=== PATIENT | female | born 1990 | race Hispanic/Latino ===

== ENCOUNTER 2022-01-12 16:33 | Emergency (ER) | payer OTHER, SELFPAY ==
[2022-01-12 16:37] VITALS: BP 123/81; PULSE 83; RESP 17; TEMP 36.6; O2SAT 100; BMI 30.1
[2022-01-12] MEDS: Penicillin Vk 250 MG Tablet 500 MG PO (18:06)
--- NOTE | 2022-01-12 18:07 | EX.ED.DYSGE1 ---
HPI History of Present Illness Chief Complaint: Edema Narrative Narrative: [place]anian-speaking formal translation staff present. Increasing left facial swelling over the past day. Reported dental filling came tooth a month ago. Hot and cold sensitivities. No fevers. No trouble swallowing. Has a dentist appointment on Saturday. No allergies. No past medical history. No medications taken. [facility] Home Medications penicillin V potassium 500 mg tablet 500 mg PO 4X/DAY #40 tabs 01/12/22 [Rx Last Taken Unknown] Allergy/AdvReac Type Severity Reaction Status Date / Time No Known Allergies Allergy Verified 01/12/22 16:35 Surgical History History of 2 sections Social History Smoking Status: Never smoker ROS ROS ED Constitutional Constitutional ED: Denies chills, fever(s) or sweats Eyes Eyes: Denies change in vision ENT ENT ED: Reports other Details: Dental pain with left-sided facial swelling ; Denies dysphagia or sore throat Cardiovascular Cardiovascular: Denies chest pain, leg edema, palpitations or racing heartbeat Respiratory/Chest Respiratory/Chest: Denies cough, dyspnea or dyspnea on exertion Gastrointestinal Gastrointestinal: Denies abdominal pain, diarrhea, nausea or vomiting Genitourinary Genitourinary ED: Denies dysuria, hematuria or urinary frequency Musculoskeletal Musculoskeletal: Denies back pain, extremity pain or neck pain Integumentary Denies rash or wounds Neurologic Neurologic: Denies headache(s), paresthesias or weakness EXAM Physical Exam Const Vital Signs: 01/12/22 16:37 01/12/22 17:33 Temperature 97.9 F Temperature Source Temporal Pulse Rate 83 Respiratory Rate 17 Respiratory Effort Normal Non-Labored Respiratory Pattern Normal Blood Pressure 123/81 H Blood Pressure Mean 95 Pulse Ox 100 Oxygen Delivery Method Room Air Positive well nourished and well developed General Appearance ED: well developed and NAD HEENT Reports moist mucous membranes HEENT Narrative: Focal dental carry tooth #14, with tenderness to percussion. There is no focal gum swelling. There is mild facial swelling maxillary. Airway patent. No sublingual edema. normocephalic and atraumatic Eyes PERRL, EOMs intact bilaterally and conjunctivae normal General Eye ED: Yes normal appearance of both eyes Neck no lymphadenopathy and supple General: Negative for tenderness Chest Wall Chest: Negative for tenderness Resp normal respiratory effort and normal air movement Effort and Inspection: symmetric chest movement; Negative for respiratory distress Cardio regular rate, regular rhythm and no murmurs Peripheral Pulses: pulses 2+ throughout GI normal to inspection, nondistended, normoactive bowel sounds and non-tender Palpation: Negative for guarding or rebound tenderness present Back/Spine no CVA tenderness and no thoracic nor lumbar tenderness Extremity normal to inspection General Extremety ED: Negative for edema or tenderness General Extremity: Negative for edema Neuro oriented x3 and no sensory deficits noted Sensorium / Orientation: awake and alert Skin no rashes or lesions noted and no wounds MDM MDM MDM Narrative Medical decision making narrative: Patient vital stable nontoxic. Focal dental carry tooth #14 with likely infection. There is no abscess for drainage. Dental Caveat was placed into tooth #14. Patient started on penicillin. She will use ibuprofen every 6 hours total 600 mg. She will keep her dental appointment on Saturday. Discharge Plan Triage Chief Complaint: Edema ED Provider: Gregory Altamirano Dx/Rx/DC Orders Clinical Impression: Dental caries, Facial swelling Instructions: ED Dental Cavity Prescriptions: New penicillin V potassium 500 mg tablet 500 mg PO 4X/DAY Qty: 40 0RF Primary Care Provider: Care Physician,No Primary Referrals: Care Physician,No Primary [Primary Care Provider] - Activity Restrictions/Additional Instructions: Keep dentist appointment on Saturday. Take antibiotic as prescribed. Ibuprofen 600 mg every 6 hours as needed. Disposition Disposition: Home, Self Care
== END 2022-01-12 18:20 | disposition home or self-care (01) ==
PROVIDERS: Emergency Provider Emergency Medicine; Visit Provider Emergency Medicine
DX: K02.9 Dental caries, unspecified (principal); R22.0 Localized swelling, mass and lump, head
CPT/HCPCS: 99283

== ENCOUNTER 2023-09-04 15:13 | Emergency (ER) | payer OTHER, SELFPAY ==
[2023-09-04 15:15] VITALS: BP 115/67; PULSE 94; RESP 16; TEMP 36.4; O2SAT 100
[2023-09-04 16:39] VITALS: BMI 33.3
[2023-09-04 16:40] VITALS: BP 102/60; PULSE 77; RESP 16; O2SAT 100
--- NOTE | 2023-09-04 17:51 | EDS_ITS ---
HPI HPI - Female History of Present Illness Chief Complaint: Vag Bld, Preg Informant: patient Limited: language barrier (Commercial Agent service was used) Pain Pain: Positive for Pelvic Pain Onset: Today Context: Sudden Onset Timing: Continuous Quality: Positive for Cramping Bleeding Issue: Positive for Vaginal bleeding Onset: Today Context: Sudden Onset Timing: Continuous Current Severity: Mild Associated Symptoms Associated Symptoms: Positive for Dysuria and Hematuria Test: Positive Narrative Narrative: Patient presents with vaginal bleeding and pelvic pain that began today. Patient states it began rather suddenly. Patient states her bleeding is less than her normal menstrual periods. Patient admits to some cramping. Patient states it is mainly over the lower abdomen. Patient states it has been constant. Patient admits to some dysuria and hematuria. Patient states that her last menstrual period was 07/17/2023. Patient states she had a positive test at home. Patient denies any fevers but admits to some subjective chills. Patient states she does have some pain going into her back as well. PFSH PFSH Medical History no medical history no medical history Home Medications ?Medication ?Instructions ?Recorded ?Last Taken ?Type penicillin V potassium 500 mg 500 mg PO 4X/DAY #40 tabs 01/12/22 Unknown Rx tablet Allergy/AdvReac Type Severity Reaction Status Date / Time No Known Allergies Allergy Verified 09/04/23 15:23 Surgical History History of 2 sections Social History household members: family Smoking Status: Never smoker ROS ROS ED Constitutional Constitutional ED: Reports chills and subjective; Denies fever(s) Eyes Eyes: Denies blurry vision or change in vision ENT ENT ED: Reports rhinorrhea; Denies sore throat Cardiovascular Cardiovascular: Denies chest pain or palpitations Respiratory/Chest Respiratory/Chest: Denies cough or dyspnea Gastrointestinal Gastrointestinal: Reports abdominal pain; Denies nausea or vomiting Genitourinary Genitourinary ED: Denies dysuria or hematuria Musculoskeletal Musculoskeletal: Reports back pain; Denies neck pain Integumentary Denies abscess or rash Neurologic Neurologic: Denies headache(s) or weakness Allergic/Immunologic Allergic/Immunologic ED: Denies mouth swelling or urticaria EXAM Physical Exam Const Vital Signs: 09/04/23 15:15 09/04/23 16:40 09/04/23 19:13 Temperature 97.6 F L Temperature Source Temporal Pulse Rate 94 77 70 Respiratory Rate 16 16 18 Blood Pressure 115/67 102/60 116/72 Blood Pressure Mean 83 74 86 Pulse Ox 100 100 98 Oxygen Delivery Method Room Air Room Air Room Air Positive well nourished and well developed General Appearance ED: well developed and NAD HEENT Reports moist mucous membranes Neck supple and no JVD Resp normal respiratory effort and clear to auscultation bilaterally Cardio regular rate and regular rhythm GI soft to palpation and non-distended Palpation: tender LLQ and suprapubic; Negative for guarding Extremity normal to inspection and full ROM Neuro oriented x3, CN's II-XII intact bilaterally and no sensory deficits noted Sensorium / Orientation: alert Motor Exam: strength 5/5 throughout Psych mental status grossly normal MDM MDM MDM Narrative Medical decision making narrative: Differential diagnosis includes ectopic , threatened miscarriage, urinary tract infection, and ovarian cyst. CBC will be obtained to assess for leukocytosis and anemia. Basic metabolic profile will be obtained to assess for electrolyte abnormality and renal function. Urinalysis will be obtained to assess for urinary tract infection and hematuria. Quantitative hCG will be obtained to assess for . Pelvic ultrasound will be obtained to assess for ectopic . Lab Data Attestation: I reviewed the patient's lab results. Lab results narrative: CBC was reviewed. There is a mild anemia with a hemoglobin of 9.7 and hematocrit of 28.2. Remainder is within normal limits. Basic metabolic profile was reviewed and was within normal limits. Quantitative hCG was reviewed and was 4963. Urinalysis was reviewed. There is no evidence of urinary tract infection or hematuria. Labs: Laboratory Results - last 24 hr 09/04/23 17:55 WBC 7.3 RBC 3.23 L Hgb 9.7 L Hct 28.2 L MCV 87.3 MCH 30.0 MCHC 34.4 RDW Std Deviation 40.5 RDW Coeff of Sara 12.8 Plt Count 150 MPV 9.9 Immature Gran % (Auto) 0.400 Neut % (Auto) 72.6 H Lymph % (Auto) 18.8 L [place] % (Auto) 7.5 Eos % (Auto) 0.4 Baso % (Auto) 0.3 Absolute Neuts (auto) 5.3 Absolute Lymphs (auto) 1.37 Nucleated RBC % 0 Sodium 136 Potassium 3.6 Chloride 105 Carbon Dioxide 24.0 Anion Gap 7 BUN 10 Creatinine 0.72 Estim Creat Clear Calc 119.76 Est GFR (MDRD) Af Amer 120 Est GFR (MDRD) Non-Af 99 BUN/Creatinine Ratio 13.9 Glucose 84 Calcium 9.0 HCG, Quant 4963 H Urine Color Yellow Urine Clarity Clear Urine pH 6.0 Ur Specific [place] 1.010 Urine Protein Negative Urine Glucose (UA) Normal Urine Ketones 5 H Urine Occult Blood 10 H Urine Nitrite Negative Urine Bilirubin Negative Urine Urobilinogen Normal Ur Leukocyte Esterase Negative Urine RBC 0 SEEN Urine WBC 0 SEEN Ur Squamous Epith Cells 0-5 SEEN Urine Bacteria 0 SEEN Urine Mucus 0 SEEN Radiography Diagnostic Testing: Clinical Impression(s) from Imaging Studies Obstetrics Ultrasound 09/04/23 17:59 IMPRESSION: Early intrauterine gestational sac without pole which is small for dates possibly representing demise in utero however would recommend clinical correlation and follow-up studies to assess for interval changes Small right ovarian cyst likely corpus luteum. No definitive evidence for ectopic Electronically Signed: Janusz Pierson MD at 19:17 EDT Reading Location ID and State: [address] [place] [address] Tel , Service support , Pelvic ultrasound was obtained. There is an early intrauterine gestational sac without pole this could represent demise or small for dates. This was interpreted by the radiologist and was also independently reviewed by myself. Treatment and Re-Evaluation Narrative: Patient was given IV fluids. Patient was advised of her findings. Patient was instructed on complete pelvic rest. Patient was instructed to follow-up with her [facility] in 2 days for repeat quantitative hCG. Patient was instructed to return if worse in any way. Patient understood and was agreeable with the plan. All questions were answered. Discharge Plan Triage Chief Complaint: Vag Bld, Preg ED Provider: Shawn Garcia Dx/Rx/DC Orders Clinical Impression: Threatened miscarriage, First trimester Instructions: Miscarriage Threatened Prescriptions: No Action penicillin V potassium 500 mg tablet 500 mg PO 4X/DAY Qty: 40 0RF Primary Care Provider: Care Physician,No Primary Referrals: Sammi Mcfarlane MD [Med Staff - Courtesy Staff] - 2 Days Care Physician,No Primary [Primary Care Provider] - Activity Restrictions/Additional Instructions: Your ultrasound today showed a intrauterine gestational sac. There was no pole. This could indicate that it is too early to see a pole or you could be possibly having a miscarriage. You will need to follow-up with your [facility] in 2 days for reevaluation. Print Language: Pashto Disposition Disposition: Home, Self Care
--- NOTE | 2023-09-04 17:59 | US_ITS ---
STUDY: FIRST TRIMESTER OBSTETRICAL ULTRASOUND REASON FOR EXAM: Female, 33 years old Pelvic pain, vaginal bleeding LMP: TECHNIQUE: Transabdominal and transvaginal TECHNICAL QUALITY: Adequate. PRIOR ULTRASOUND: None. FINDINGS: There is visualization of a single gestational sac in a normal intrauterine position. The mean sac diameter (MSD) measures 6.4 mm, indicating an estimated gestational age (EGA) of 5 weeks, 2 days. The gestational sac shape is within normal limits. Yolk sac is not visualized The placenta is non-visualized. pole not visualized. The estimated gestation age (EGA) by LMP is 7 weeks, 0 days. The estimated date of delivery (ALDA) by LMP is April 22, 2024. The estimated gestation age (EGA) by US is 5 weeks, 2 days. The estimated date of delivery (ALDA) by US is May 04, 2024. The uterus measures 10.4 x 7.3 x 5.9 cm. There is no demonstrated uterine fibroid. The cervix is closed. The right ovary measures 3.4 x 3.2 x 1.5 cm. There is a cyst measuring 2 x 2 x 0.9 cm possibly corpus luteum.. There is no visualized right adnexal mass or complex lesion. The left ovary measures 2.8 x 1.3 x 1.2 cm. There is no left ovarian cyst. There is no visualized left adnexal mass or complex lesion. There is no fluid in the cul de sac. US/Transvaginal w/Preg US IMPRESSION: Early intrauterine gestational sac without pole which is small for dates possibly representing demise in utero however would recommend clinical correlation and follow-up studies to assess for interval changes Small right ovarian cyst likely corpus luteum. No definitive evidence for ectopic Electronically Signed: Janusz Pierson MD at 19:17 EDT ,
[2023-09-04] MEDS: 0.9% Normal Saline (1000mL) 1,000 ML 1000 ML IV (18:05)
[2023-09-04 18:06] LABS: Bacteria 0 SEEN /hpf (None Seen); Mucous, Urine 0 SEEN /hpf (<or=2+); Red Blood Cells-Urine 0 SEEN /hpf (0-5); White Blood Cells 0 SEEN /hpf (0-5)
[2023-09-04 18:07] LABS: Color, Urine Yellow (Yellow); Glucose, Dipstick Normal (Normal); Ketone-Dipstick 5 mg/dl (Negative); Leukocyte Esterase-Dipstick Negative /ul (Negative); Nitrite-Dipstick Negative (Negative); Occult Blood-Urine 10 /ul (Negative); Protein-Dipstick Negative (Negative); Urine Bilirubin Dipstick Negative (Negative); Urine Clarity Clear (Clear); Urine Urobilinogen Normal (Normal)
[2023-09-04 18:14] LABS: Absolute Lymphocyte Count 1.37 X10^3/uL (0.83-4.51); Absolute Neutrophil Count 5.3 X10^3/uL (2.0-7.7); Basophil# 0.02 X10^3/uL; Basophil% 0.3 % (0-1); Eosinophil# 0.03 X10^3/uL; Eosinophils% 0.4 % (0-5); Hematocrit 28.2 % (37-47); Hemoglobin 9.7 g/dL (12.0-15.0); Lymphocyte # 1.37 X10^3/ul (0.83-4.51); Lymphocyte % 18.8 % (19-41); Mean Corp Hgb Conc 34.4 g/dL (32-36); Mean Corpuscular Volume 87.3 fL (81-99); Mean Platelet Vol. 9.9 fl (6.2-12.0); Monocyte# 0.55 X10^3/uL; Monocyte% 7.5 % (0-10); NRBC Flagged by Analyzer 0 % (0-5); Neutrophil # 5.29 X10^3/uL (2.7-7.7); Neutrophil % 72.6 % (47-70); Platelet Count 150 K/mm3 (150-450); RBC Distribution Width CV 12.8 % (11.6-14.6); RBC Distribution Width SD 40.5 fl (35.1-43.9); Red Blood Count 3.23 M/mm3 (4.2-5.4); White Blood Count 7.3 K/mm3 (4.4-11.0)
[2023-09-04 18:22] LABS: Squamous Epithelial Cells - UA 0-5 SEEN /hpf (5-10)
[2023-09-04 18:23] LABS: Anion Gap 7 (5-15); BUN 10 mg/dL (7-18); BUN/Creat Ratio 13.9 RATIO (10-20); Chloride 105 mmol/L (98-107); Creatinine, Serum 0.72 mg/dL (0.55-1.02); EST Glomerular Filtration Rate 99 mL/min (>60); Est Glom Filt Rate - Afr Amer 120 mL/min (>60); Estimated Creatinine Clearance 119.76 ml/min; Glucose 84 mg/dL (74-106); Potassium 3.6 mmol/L (3.5-5.1); Sodium Level 136 mmol/L (136-145)
[2023-09-04 19:08] LABS: hCG Titer Quant., Serum 4963 mIU/mL (1-3)
[2023-09-04 19:13] VITALS: BP 116/72; PULSE 70; RESP 18; O2SAT 98
[2023-09-04 20:08] VITALS: BP 110/63; PULSE 69; RESP 18; TEMP 36.6; O2SAT 100
== END 2023-09-04 20:20 | disposition home or self-care (01) ==
PROVIDERS: Emergency Provider Emergency Medicine; Visit Provider Emergency Medicine
DX: O20.0 Threatened abortion (principal); O26.891 Other specified pregnancy related conditions, first trimester; R10.2 Pelvic and perineal pain; R31.9 Hematuria, unspecified; R30.0 Dysuria; Z3A.00 Weeks of gestation of pregnancy not specified
CPT/HCPCS: 76817; 80048; 81001; 84702; 85025; 96360; 99283; J7030; A4216